=== PATIENT | female | born 1990 | race American Indian/Alaskan Native ===

== ENCOUNTER 2016-06-13 08:25 | Inpatient (IN) | payer MEDICAID ==
[2016-06-13] MEDS ORDERED: PEPCID IV ONE ×2 (09:28→12:00)
[2016-06-13] MEDS ORDERED: REGLAN IV ONE ×2 (09:28→12:00)
[2016-06-13] MEDS ORDERED: BICITRA PO ONE ×2 (09:28→12:00)
[2016-06-13] MEDS ORDERED: ANCEF/STERILE WATER 2 GM/20 ML 20 ML IV NR (10:00)
[2016-06-13] MEDS ORDERED: PITOCin/NS 20 UNIT/1000ML DRIP 1,000 ML IV NR (10:00)
[2016-06-13] MEDS ORDERED: LACTATED RINGERS 1,000 ML IV NR (10:00)
--- NOTE | 2016-06-13 10:22 | History and Physical Report ---
History of Present Illness Date of examination: 06/13/16 Date of admission: 06/13/16 10:11 Chief complaint: SROM clear fluid History of present illness: Pt is a 26yo BF EDC 07/11/16; EGA 36 0/7 weeks presents to L&D complaining of SROM clear fluid at 0700 followed by shannong DENIS's. She received care at [facility] since 10 weeks and course has been complicated by several admissions for PTL - last time being 05/23/16 where she received Magnesium sulfate and Celestone, and previous C Section for abruption. She also has GDM - diet controlled and is Co-managed by [facility]. She is now scheduled for a repeat C Section, and she changed her mind against sterilization. Past History Past Medical History: diabetes (GDM - diet controlled) Past Surgical History: section Family/Genetic History: none Social history: no significant social history, single - Obstetrical History Expected Date of Delivery: 07/11/16 Actual Gestation: 36 Week(s) 0 Day(s) : 3 Medications and Allergies Allergies Allergy/AdvReac Type Severity Reaction Status Date / Time No Known Allergies Allergy Verified 04/26/16 23:30 Home Medications Medication Instructions Recorded Confirmed Last Taken Type Pnv95/Ferrous Fumarate/FA 1 each PO DAILY 07/07/15 05/23/16 05/22/16 08:00 History [ [place]] Multivitamin with Iron 1 each PO DAILY #30 tablet 07/08/15 05/23/16 Unknown Rx [Multivitamins with Iron] NIFEdipine 10 mg PO QID #120 cap 04/16/16 05/23/16 05/22/16 10:00 Rx Ferrous Sulfate [Feosol 325 MG tab] 325 mg PO BID #60 tablet 05/26/16 Unknown Rx Ferrous Sulfate [Feosol 325 MG tab] 325 mg PO BID #60 tablet 06/13/16 Unknown Rx HYDROcodone/APAP 5-325 [[place] 1 each PO Q6HR PRN #30 tablet 06/13/16 Unknown Rx 5/325] Ibuprofen [Motrin] 800 mg PO Q8HR PRN #30 tablet 06/13/16 Unknown Rx Vit W-Ca,Fe,FA(<1 mg) 1 each PO DAILY #30 tablet 06/13/16 Unknown Rx [ Vitamins] Active Meds: Active Medications Cefazolin Sodium (Ancef/Sterile Water 2 Gm/20 Ml) 20 mls @ 80 mls/hr IV PREOP NR PRN Reason: Protocol Stop: 06/13/16 23:00 Lactated Ringer's (Lactated Ringers) 1,000 mls @ 2,250 mls/hr IV PREOP NR Stop: 06/14/16 10:27 Oxytocin/Sodium Chloride (Pitocin/Ns 20 Unit/1000ml Drip) 1,000 mls @ 0 mls/hr IV TITR NR PRN Reason: Wide Open Stop: 06/13/16 23:00 Review of Systems All systems: negative - Vital Signs Vital signs: Vital Signs Pulse BP 93 H 127/64 06/13/16 08:49 06/13/16 08:49 Temp Pulse Resp BP Pulse Ox 101 H 114/66 98 06/13/16 10:19 06/13/16 09:49 06/13/16 10:19 - Physical Exam Breasts: Positive: deferred Cardiovascular: Regular rate Lungs: Positive: Clear to auscultation Abdomen: Positive: normal appearance, soft Genitourinary (Female): Positive: normal external genitalia Uterus: Positive: enlarged Extremities: Positive: normal - Obstetrical FHR: category 1 Uterine Contraction Monitor Mode: External Results Result Diagrams: 06/13/16 09:30 All other labs normal. Assessment and Plan - Patient Problems (1) History of delivery, currently in third trimester Diagnosis Date: 05/23/16 Current Visit: No Status: Chronic (2) Previous delivery affecting Diagnosis Date: 06/13/16 Current Visit: Yes Status: Acute Plan to address problem: A: IUP @ 36 0/7 weeks Previous C Section History of PTL GDM P: Admit to L&D for a Repeat C Section
--- NOTE | 2016-06-13 10:44 | Anesthesia Consultation ---
Anesthesia Consult and Med Hx Date of service: 06/13/16 - Airway Anesthetic Teeth Evaluation: Good ROM Head & Neck: Adequate Mental/Hyoid Distance: Adequate Mallampati Class: Class II Intubation Access Assessment: Possibly Difficult - Pulmonary Exam CTA: Yes - Cardiac Exam Cardiac Exam: RRR - Pre-Operative Health Status ASA Pre-Surgery Classification: ASA2 Proposed Anesthetic Plan: Epidural, Spinal - Pulmonary Hx Asthma: No COPD: No Hx Pneumonia: No - Cardiovascular System Hx Hypertension: No - Central Nervous System Hx Seizures: No Hx Psychiatric Problems: No - Endocrine Hx Renal Disease: No Hx End Stage Renal Disease: No Hx Hypothyroidism: No Hx Hyperthyroidism: No - Hematic Hx Anemia: No Hx Sickle Cell Disease: No - Other Systems Hx Alcohol Use: No - Additional Comments Anesthesia Medical History Comments: IUP @ 36 Weeks. Ruptured. Previous C- section
[2016-06-13 10:47] LABS: Basophils % (Auto) 0.3 % (0.0-1.8); Eosinophils % (Auto) 10.2 % (0.0-4.3); Hematocrit 30.6 % (30.3-42.9); Hemoglobin 10.2 gm/dl (10.1-14.3); Mean Corpuscular HGB Conc 33 % (30-34); Mean Corpuscular Hemoglobin 28 pg (28-32); Mean Corpuscular Volume 84 fl (79-97); Platelet Count 204 K/mm3 (140-440); Red Blood Count 3.63 M/mm3 (3.65-5.03); Red Cell Distribution Width 16.3 % (13.2-15.2)
--- NOTE | 2016-06-13 10:49 | Anesthesia Day of Surgery ---
Anesthesia Day of Surgery - Day of Surgery Patient Examined: Yes Patient H&P Reviewed: Yes Patient is NPO: Yes (Since 9pm)
[2016-06-13] MEDS ORDERED: POLYCILLIN/NS 2 GM/100 ML 100 ML IV ONE (12:34)
[2016-06-13] MEDS ORDERED: MARCAINE 0.5% 30 ML INFILTRATI ONE (16:09)
[2016-06-13] MEDS ORDERED: MORPHINE ONE (16:10)
[2016-06-13] MEDS ORDERED: NACL 0.9% IR ONE (16:20)
[2016-06-13] MEDS ORDERED: WATER FOR IRRIG STERILE IR ONE (16:20)
[2016-06-13] MEDS ORDERED: ePHEDrine SULFATE ONE (16:33)
[2016-06-13] MEDS ORDERED: SUBLIMAZE ONE (17:02)
[2016-06-13] MEDS ORDERED: ZOFRAN ONE (17:05)
--- NOTE | 2016-06-13 17:26 | Operative Report ---
Operative Report Operative Report: Date of procedure: 06/13/2016 Pre-operative diagnosis: 1. Intrauterine at 36-0/7 weeks 2. Previous section 3. Spontaneous rupture of membranes 4. History of labor 5. Gestational diabetes mellitus Post-operative diagnosis: Same Procedure name(s): Repeat low transverse section Surgeon: Kendall Mata MD Spinning Supervisor: None Anesthesia: Spinal anesthesia by Dr. London EBL: 400 mL's Findings: A 2596 g female infant Apgars 9 at 1 minute 9 at 5 minutes. Clear amniotic fluid. Nuchal cord 1. Normal uterus and normal tubes and ovaries bilaterally. Procedure: After the patient was prepped and draped in usual sterile fashion, and after satisfactory level of epidural anesthesia was obtained, the skin knife was used to make a transverse skin incision through the previous skin scar. The incision was excised down to layer of the fascia, which was nicked in the midline and extended laterally using the Bovie cautery. The rectus muscles were dissected off the rectus fascia both superiorly and inferiorly. The rectus bellies in the midline, and the peritoneum was entered under direct visualization. The peritoneal incision was extended superiorly and inferiorly. A bladder flap was created and the bladder blade was then placed. The uterus was scored in a curvilinear linear fashion, entered in the midline revealing clear amniotic fluid. The 's head was delivered onto the surgical field, nuchal cord 1 easily reduced and the oropharynx and nasopharynx were bulb suctioned. The rest of the 's body was delivered, cord was doubly clamped and cut and the infant was handed to the waiting respiratory team. Cord blood was then obtained. The placenta was manually removed from the uterus, and the uterus removed from its normal anatomical position. After gentle uterine lavage, the incision was inspected and found to be without extensions. It was then closed in 2 layers using 0 Vicryl suture in a running interlocking fashion, the second layer imbricating the first. After good hemostasis was achieved, copious amounts or irrigation was performed, and the gutters were suctioned free of blood and blood clots. The Tisseel sealant was sprayed across the uterine incision. The uterus was then returned to its normal anatomical position, and after excellent hemostasis assured, the peritoneum was reapproximated using 3-0 Vicryl suture in a running interlocking fashion, and then the rectus muscles were reapproximated using 3-0 Vicryl suture in a [id number] configuration. The fascia was then reapproximated using 0 Vicryl suture in running interlocking fashion. The subcutaneous layer was made hemostatic using Bovie cautery, the Tisseel sealant was sprayed across the fascial incision and the skin edges reapproximated using 4-0 Vicryl suture in a subcuticular fashion. Patient tolerated the procedure well was transported to recovery in stable condition.
[2016-06-13] MEDS ORDERED: LACTATED RINGERS 1,000 ML ONE (17:36)
[2016-06-13] MEDS ORDERED: TORADOL IV PRN (17:36)
[2016-06-13] MEDS ORDERED: MILK OF MAGNESIA PO PRN (17:36)
[2016-06-13] MEDS ORDERED: NARCAN 0.4 MG/1 ML IV PRN ×2 (17:36→18:46)
[2016-06-13] MEDS ORDERED: ZOFRAN IV PRN (17:36)
[2016-06-13] MEDS ORDERED: LANSINOH TP PRN (17:36)
[2016-06-13] MEDS ORDERED: TUCKS PAD TP PRN (17:36)
[2016-06-13] MEDS ORDERED: TYLENOL PO PRN (17:36)
[2016-06-13] MEDS ORDERED: MYLICON PO PRN (17:36)
[2016-06-13] MEDS ORDERED: ANUCORT-HC PR PRN (17:36)
[2016-06-13] MEDS ORDERED: NEO SYNEPHRINE ONE (17:37)
[2016-06-13] MEDS ORDERED: NACL 0.9% 100 ML ONE (17:37)
[2016-06-13] MEDS ORDERED: D5LR 1,000 ML IV SCH (18:00)
[2016-06-13] MEDS ORDERED: SODIUM CHLORIDE FLUSH SYRINGE 10 ML IV NR (18:00)
[2016-06-13] MEDS ORDERED: PITOCin/NS 20 UNIT/1000ML DRIP 1,000 ML IV SCH (18:00)
[2016-06-13] MEDS ORDERED: ANCEF/NS 1 GM/50 ML 50 ML IV SCH (18:00)
[2016-06-13] MEDS ORDERED: PHENERGAN PO PRN (18:23)
[2016-06-13] MEDS ORDERED: PHENERGAN PR PRN (18:23)
[2016-06-13] MEDS ORDERED: DILAUDID IV PRN (18:23)
--- NOTE | 2016-06-13 18:23 | Post Anesthesia Evaluation ---
- Post Anesthesia Evaluation Patient Participated: Yes Airway Patent: Yes Stable Respiratory Function: Yes Temp > 96.8F: Yes Pain Manageable: Yes Adequeate Hydration: Yes Anesthesia Complications: No Block Receding Appropriately: Yes
[2016-06-14] MEDS ORDERED: ANCEF/NS 1 GM/50 ML 50 ML IV SCH (04:00)
[2016-06-14 06:44] LABS: Hemoglobin 9.5 gm/dl (10.1-14.3)
--- NOTE | 2016-06-14 07:19 | Progress Note ---
Assessment and Plan - Patient Problems (1) History of delivery, currently in third trimester Diagnosis Date: 05/23/16 Current Visit: No Status: Resolved (2) Previous delivery affecting Diagnosis Date: 06/13/16 Current Visit: Yes Status: Resolved (3) Status post repeat low transverse section Diagnosis Date: 06/14/16 Current Visit: Yes Status: Resolved Plan to address problem: A: S/P Repeat C Section - POD #1 Doing well GDM - stable P: Continue RPOC Check blood sugars Subjective - Subjective Date of service: 06/14/16 Principal diagnosis: POD #1 - s/p Repeat C Section Interval history: Pt is feeling well without complaints. Tolerating a liquid diet without nausea or vomiting. Not ambulating yet - espinosa still in place. Patient reports: appetite normal, voiding normally, pain well controlled, flatus : doing well, nursing well Objective - Vital Signs Latest vital signs: Vital Signs Temp Pulse Pulse Resp BP BP Pulse Ox 06/14/16 04:00 98.7 F 103 H 18 112/61 06/14/16 00:00 98.4 F 89 16 119/68 06/13/16 20:00 97.7 F 97 H 18 142/75 06/13/16 18:50 96.9 F L 91 H 16 119/66 06/13/16 17:45 97.1 F L 06/13/16 12:09 94 H 98 06/13/16 12:04 95 H 97 06/13/16 11:59 97 H 96 06/13/16 11:54 94 H 98 06/13/16 11:49 100 H 98 06/13/16 11:44 98 H 97 06/13/16 11:39 94 H 98 06/13/16 11:34 87 97 06/13/16 11:29 84 98 06/13/16 11:24 97 H 98 06/13/16 11:19 91 H 97 06/13/16 11:14 89 98 06/13/16 10:59 98 H 98 06/13/16 10:54 96 H 98 06/13/16 10:49 96 H 96 06/13/16 10:44 89 98 06/13/16 10:39 86 99 06/13/16 10:34 94 H 97 06/13/16 10:29 100 H 98 06/13/16 10:24 97 H 97 06/13/16 10:19 101 H 98 06/13/16 10:14 94 H 96 06/13/16 10:09 94 H 98 06/13/16 10:04 89 97 06/13/16 09:59 99 H 98 06/13/16 09:54 109 H 98 06/13/16 09:49 96 H 114/66 98 06/13/16 08:49 93 H 127/64 Intake and Output 06/13/16 06/14/16 06/14/16 22:59 06:59 14:59 Intake Total 665 875 Output Total 1900 700 Balance -1235 175 Intake: IV 545 875 Ancef/Ns 1 gm/50 ml 50 ml 50 @ 100 mls/hr IV Q8H SARATH Rx#:[id number] 1,000 ml @ 125 mls/ 495 875 hr IV DIRECT SARATH Rx#: [id number] Intake, Free Water 120 Output: Urine 1900 700 Uretheral (Espinosa) 800 Indwelling Catheter 900 700 Other: Total, Output Amount 900 700 Estimated Blood Loss 900 - Exam Breasts: Present: deferred Cardiovascular: Present: Regular rate Lungs: Present: Clear to auscultation Abdomen: Present: normal appearance, soft Uterus: Present: normal, firm, fundal height below umbilicus Extremities: Present: normal Incision: Present: normal, dry, intact, dressed - Labs Labs: Abnormal lab results 06/13/16 06/14/16 Range/Units 09:30 05:36 RBC 3.63 L (3.65-5.03) M/mm3 Hgb 9.5 L (10.1-14.3) gm/dl Hct 29.0 L (30.3-42.9) % RDW 16.3 H (13.2-15.2) % [place] % (Auto) 12.0 H (0.0-7.3) % Eos % (Auto) 10.2 H (0.0-4.3) % [place] # 1.0 H (0.0-0.8) K/mm3 Eos # 0.8 H (0.0-0.4) K/mm3 Laboratory Tests 06/13/16 06/13/16 06/14/16 09:30 09:30 05:36 WBC 8.0 RBC 3.63 L Hgb 10.2 9.5 L Hct 30.6 29.0 L MCV 84 MCH 28 MCHC 33 RDW 16.3 H Plt Count 204 Lymph % (Auto) 24.4 [place] % (Auto) 12.0 H Eos % (Auto) 10.2 H Baso % (Auto) 0.3 Lymph # 2.0 [place] # 1.0 H Eos # 0.8 H Baso # 0.0 Seg Neutrophils % 53.1 Seg Neutrophils # 4.3 Blood Type A NEGATIVE Antibody Screen Negative
[2016-06-14] MEDS: FEOSOL PO SCH (12:01)
[2016-06-14] MEDS: PERCOCET 5/325 PO PRN (12:01)
[2016-06-14] MEDS: PRENATAL VITAMIN PO SCH (12:01)
[2016-06-14] MEDS: SENOKOT PO PRN (17:02)
[2016-06-14] MEDS: MOTRIN PO PRN (17:03)
[2016-06-14] MEDS: NORCO 5/325 PO PRN (17:03)
[2016-06-14] MEDS ORDERED: BOOSTRIX IM ONE (17:38)
[2016-06-14] MEDS ORDERED: M-M-R II VACCINE SUB-Q ONE (17:38)
[2016-06-15] MEDS: PERCOCET 5/325 PO PRN ×3 (01:00→23:56)
[2016-06-15] MEDS: MOTRIN PO PRN ×4 (01:00→23:55)
[2016-06-15] MEDS: NORCO 5/325 PO PRN ×2 (06:10→18:00)
--- NOTE | 2016-06-15 11:04 | Progress Note ---
Assessment and Plan - Patient Problems (1) History of delivery, currently in third trimester Diagnosis Date: 05/23/16 Current Visit: No Status: Resolved (2) Previous delivery affecting Diagnosis Date: 06/13/16 Current Visit: Yes Status: Resolved (3) Status post repeat low transverse section Diagnosis Date: 06/14/16 Current Visit: Yes Status: Resolved Plan to address problem: A: S/P Repeat C Section - POD #2 Doing well GDM - stable P: Possible discharge to home tomorrow. Subjective - Subjective Date of service: 06/15/16 Principal diagnosis: POD #2 - s/p Repeat C Section Interval history: Pt is feeling well without complaints. Tolerating a reg diet without nausea or vomiting, ambulating and voiding without difficulty. Patient reports: appetite normal, voiding normally, pain well controlled, flatus , ambulating normally : doing well, in NICU Objective - Vital Signs Latest vital signs: Vital Signs Temp Pulse Resp BP BP 06/15/16 07:56 97.9 F 90 20 104/48 06/15/16 06:10 18 06/15/16 01:00 18 06/15/16 00:40 98.0 F 105 H 20 129/66 06/14/16 16:20 98.6 F 105 H 20 118/61 Intake and Output 06/14/16 06/15/16 06/15/16 22:59 06:59 14:59 Intake Total 360 360 120 Output Total 300 Balance 60 360 120 Intake: Oral 360 120 Intake, Free Water 360 Output: Urine 300 Void 300 Other: Total, Intake Amount 360 120 Total, Output Amount 300 Voiding Method Toilet # Voids Void 1 - Exam Breasts: Present: deferred Cardiovascular: Present: Regular rate Lungs: Present: Clear to auscultation Abdomen: Present: normal appearance, soft Uterus: Present: normal, firm, fundal height below umbilicus Extremities: Present: normal Incision: Present: normal, dry, intact
[2016-06-15] MEDS: PRENATAL VITAMIN PO SCH (11:21)
[2016-06-15] MEDS: FEOSOL PO SCH (11:22)
--- NOTE | 2016-06-15 16:42 | Discharge Summary ---
Providers - Providers Date of Admission: 06/13/16 10:11 Date of discharge: 06/16/16 Attending physician: ABIDA SANDS MD Primary care physician: ABIDA SANDS MD Hospitalization Reason for admission: IUP - , section, rupture of membranes Delivery: Procedure: section, repeat low transverse Incision: normal, dry, intact Other procedures: none complications: none Discharge diagnosis: delivery [place] baby: female Hospital course: Pt is a 26yo BF EDC 07/11/16; EGA 36 0/7 weeks who presented to L&D complaining of SROM clear fluid followed by irreg UC's. She received care at [facility] since 10 weeks and course has been complicated by several admissions for PTL where she received Magnesium sulfate and Celestone, and previous C Section for abruption. She underwent an uncomplicated repeat C Section, and post operative course was uneventful. By POD #2 she was tolerating a reg diet without nausea or vomiting, ambulating and voiding without difficulty, and therefore discharged to home on POD #3 in stable condition. Condition at discharge: Good Disposition: DISCHARGED TO HOME OR SELFCARE - Discharge Diagnoses (1) History of delivery, currently in third trimester Status: Resolved (2) Previous delivery affecting Status: Resolved (3) Status post repeat low transverse section Status: Resolved Plan - Discharge Medications Prescriptions: Ferrous Sulfate [Feosol 325 MG tab] 325 mg PO BID #60 tablet HYDROcodone/APAP 5-325 [[place] 5/325] 1 each PO Q6HR PRN #30 tablet PRN Reason: Pain Ibuprofen [Motrin] 800 mg PO Q8HR PRN #30 tablet PRN Reason: Moder Pain Unrelieved By Brothers Vit W-Ca,Fe,FA(<1 mg) [ Vitamins] 1 each PO DAILY #30 tablet - Provider Discharge Summary Activity: routine, no sex for 6 weeks, no heavy lifting 4 weeks, no strenuous exercise Diet: routine Instructions: routine Additional instructions: [] Smoking cessation referral if applicable(refer to patient education folder for contact #) [] Refer to [facility] Booklet Call your doctor immediately for: * Fever > 100.5 * Heavy vaginal bleeding ( >1 pad per hour) * Severe persistent headache * Shortness of breath * Reddened, hot, painful area to leg or breast * Drainage or odor from incision. * Keep incision clean and dry at all times and follow doctor's instructions regarding bathing/showering - Follow up plan Follow up: ABIDA FRYE MD [Primary Care Provider] - 14 Days Forms: Work/School Excuse Out Patient, Discharge Signature Page
[2016-06-16] MEDS: FEOSOL PO SCH (08:05)
[2016-06-16] MEDS: PRENATAL VITAMIN PO SCH (08:05)
[2016-06-16] MEDS: MOTRIN PO PRN (08:05)
[2016-06-16] MEDS: PERCOCET 5/325 PO PRN (08:06)
[2016-06-16] MEDS: SENOKOT PO PRN (08:10)
[2016-06-16 09:17] VITALS: BP 112/70
[2016-06-16] MEDS ORDERED: DULCOLAX PR PRN (11:50)
== END 2016-06-16 15:15 | disposition home or self-care (01) | DRG 765 ==
LOC: TRG 08:25 → APU 10:11 → OB 19:19
PROVIDERS: ADMIT Obstetrics & Gynecology; ATTEND Obstetrics & Gynecology
PROC: 10D00Z1 Extraction of Products of Conception, Low, Open Approach (ICD-10-PCS; principal; 2016-06-13)
PROC: 3E0334Z Introduction of Serum, Toxoid and Vaccine into Peripheral Vein, Percutaneous Approach (ICD-10-PCS; 2016-06-14)
DX: O42.013 Preterm premature rupture of membranes, onset of labor within 24 hours of rupture, third trimester (principal); O60.14X0 Preterm labor third trimester with preterm delivery third trimester, not applicable or unspecified; O34.219 Maternal care for unspecified type scar from previous cesarean delivery; O24.420 Gestational diabetes mellitus in childbirth, diet controlled; Z3A.36 36 weeks gestation of pregnancy; Z37.0 Single live birth; O26.893 Other specified pregnancy related conditions, third trimester; Z67.11 Type A blood, Rh negative; O69.81X0 Labor and delivery complicated by cord around neck, without compression, not applicable or unspecified
CPT/HCPCS: 36415; 82962; 85014; 85018; 85025; 85461; 86850; 86900; 86901; 88307; 99211; A6250; G0463; J0290; J0690; J2270; J2370; J2405; J2590; J2765; J2790; J3010; J7120; J7121; Q0169

== ENCOUNTER 2016-11-16 15:11 | Emergency (ER) | payer SELFPAY ==
[2016-11-16 15:21] VITALS: BP 148/100
[2016-11-16 15:57] LABS: Bacteria,Urine 1+ /HPF (Negative); Bilirubin,Urine NEG (Negative); Blood,Urine NEG (Negative); Ketones,Urine NEG (Negative); Leukocyte Esterase,Urine SM (Negative); Mucus,Urine 3+ /HPF; Nitrite,Urine NEG (Negative); Urobilinogen,Urine < 2.0 mg/dL (<2.0)
[2016-11-16 16:43] LABS: Basophils % (Auto) 0.8 % (0.0-1.8); Eosinophils % (Auto) 1.7 % (0.0-4.3); Hematocrit 36.1 % (30.3-42.9); Hemoglobin 11.3 gm/dl (10.1-14.3); Mean Corpuscular HGB Conc 31 % (30-34); Mean Corpuscular Volume 80 fl (79-97); Platelet Count 261 K/mm3 (140-440); Red Blood Count 4.53 M/mm3 (3.65-5.03); Red Cell Distribution Width 16.7 % (13.2-15.2)
[2016-11-16 17:01] LABS: Mean Corpuscular Hemoglobin 25 pg (28-32)
[2016-11-16 17:32] LABS: Alanine Aminotransferase 117 units/L (7-56); Albumin 4.3 g/dL (3.9-5); Albumin/Globulin Ratio 1.3 %; Alkaline Phosphatase 93 units/L (35-129); Anion Gap 17 mmol/L; Blood Urea Nitrogen 12 mg/dL (7-17); Calcium 9.1 mg/dL (8.4-10.2); Carbon Dioxide 24 mmol/L (22-30); Chloride 102.7 mmol/L (98-107); Glucose 83 mg/dL (65-100); Lipase 21 units/L (13-60); Potassium 4.5 mmol/L (3.6-5.0); Sodium 139 mmol/L (137-145); Total Protein 7.5 g/dL (6.3-8.2)
--- NOTE | 2016-11-17 11:18 | ED Elopement Review ---
ED Pt Elopement review - Results review Lab results: Laboratory Tests 11/16/16 11/16/16 11/16/16 15:29 15:56 15:56 WBC 5.0 RBC 4.53 Hgb 11.3 Hct 36.1 MCV 80 MCH 25 L MCHC 31 RDW 16.7 H Plt Count 261 Lymph % (Auto) 36.9 H [place] % (Auto) 12.1 H Eos % (Auto) 1.7 Baso % (Auto) 0.8 Lymph # 1.9 [place] # 0.6 Eos # 0.1 Baso # 0.0 Seg Neutrophils % 48.5 Seg Neutrophils # 2.4 Sodium 139 Potassium 4.5 Chloride 102.7 Carbon Dioxide 24 Anion Gap 17 BUN 12 Creatinine 0.6 L Estimated GFR > 60 BUN/Creatinine Ratio 20.00 Glucose 83 Calcium 9.1 Total Bilirubin 0.50 AST 139 H ALT 117 H Alkaline Phosphatase 93 Total Protein 7.5 Albumin 4.3 Albumin/Globulin Ratio 1.3 Lipase 21 Urine Color Yellow Urine Turbidity Clear Urine pH 5.0 Ur Specific [place] 1.031 H Urine Protein 30 mg/dl Urine Glucose (UA) Neg Urine Ketones Neg Urine Blood Neg Urine Nitrite Neg Urine Bilirubin Neg Urine Urobilinogen < 2.0 Ur Leukocyte Esterase Sm Urine WBC (Auto) 5.0 Urine RBC (Auto) 5.0 U Epithel Cells (Auto) 3.0 Urine Bacteria (Auto) 1+ Urine Mucus 3+ Urine HCG, Qual Negative - Call Back decision Pt Call Back Decision: Pt to F/U with PMD
== END 2016-11-16 18:30 | disposition left against medical advice (07) ==
LOC: ED 15:11
DX: R10.9 Unspecified abdominal pain (principal); Z53.21 Procedure and treatment not carried out due to patient leaving prior to being seen by health care provider
CPT/HCPCS: 36415; 80053; 81001; 81025; 83690; 85025

== ENCOUNTER 2018-02-17 07:54 | Emergency (ER) | payer SELFPAY ==
[2018-02-17 08:00] VITALS: BP 132/64
[2018-02-17] MEDS ORDERED: NACL 0.9% 1000 ML 1,000 ML IV ONE (08:00)
[2018-02-17 08:36] LABS: Basophils % (Auto) 0.7 % (0.0-1.8); Eosinophils # (Auto) 0.1 K/mm3 (0.0-0.4); Eosinophils % (Auto) 1.9 % (0.0-4.3); Hemoglobin 12.4 gm/dl (10.1-14.3); Lymphocytes # (Auto) 2.4 K/mm3 (1.2-5.4); Lymphocytes % (Auto) 47.4 % (13.4-35.0); Mean Corpuscular HGB Conc 33 % (30-34); Mean Corpuscular Hemoglobin 27 pg (28-32); Mean Corpuscular Volume 83 fl (79-97); Monocytes # (Auto) 0.6 K/mm3 (0.0-0.8); Monocytes % (Auto) 11.1 % (0.0-7.3); Platelet Count 247 K/mm3 (140-440); Red Blood Count 4.56 M/mm3 (3.65-5.03); Red Cell Distribution Width 15.2 % (13.2-15.2)
[2018-02-17 08:39] LABS: Alanine Aminotransferase 15 units/L (7-56); Albumin 4.1 g/dL (3.9-5); BUN/Creatinine Ratio 21; Blood Urea Nitrogen 15 mg/dL (7-17); Calcium 8.9 mg/dL (8.4-10.2); Hemolysis Index 5; Lipase 22 units/L (13-60)
== END 2018-02-17 10:04 | disposition left against medical advice (07) ==
LOC: ED 07:54
DX: R10.11 Right upper quadrant pain (principal); Z53.21 Procedure and treatment not carried out due to patient leaving prior to being seen by health care provider
CPT/HCPCS: 36415; 80053; 83690; 84703; 85025

== ENCOUNTER 2020-04-18 06:56 | Day surgery (SDC) | payer BC ==
[2020-04-13 08:38] LABS: Hematocrit 33.6 % (30.3-42.9); Hemoglobin 10.8 gm/dl (10.1-14.3); Mean Corpuscular HGB Conc 32 % (30-34); Mean Corpuscular Volume 80 fl (79-97); Platelet Count 256 K/mm3 (140-440); Red Blood Count 4.18 M/mm3 (3.65-5.03); Red Cell Distribution Width 16.6 % (13.2-15.2)
[2020-04-18] MEDS ORDERED: HYDROmorphone 1 MG/1 ML INJ IV PRN ×2 (07:31)
[2020-04-18] MEDS ORDERED: ONDANSETRON 4 MG/2 ML INJ IV PRN (07:31)
--- NOTE | 2020-04-18 07:33 | Anesthesia Day of Surgery ---
Anesthesia Day of Surgery - Day of Surgery Patient Examined: Yes Patient H&P Reviewed: Yes Patient is NPO: Yes
--- NOTE | 2020-04-18 07:34 | Anesthesia Consultation ---
Anesthesia Consult and Med Hx Date of service: 04/18/20 - Airway Anesthetic Teeth Evaluation: Good ROM Head & Neck: Adequate Mental/Hyoid Distance: Adequate Mallampati Class: Class II Intubation Access Assessment: Good - Pre-Operative Health Status ASA Pre-Surgery Classification: ASA2 Proposed Anesthetic Plan: General - Pulmonary Hx Asthma: No COPD: No Hx Pneumonia: No - Cardiovascular System Hx Hypertension: No - Central Nervous System Hx Seizures: No Hx Psychiatric Problems: No - Endocrine Hx Renal Disease: No Hx End Stage Renal Disease: No Hx Hypothyroidism: No Hx Hyperthyroidism: No - Hematic Hx Anemia: No Hx Sickle Cell Disease: No - Other Systems Hx Alcohol Use: No Hx Cancer: No Hx Obesity: Yes
[2020-04-18] MEDS ORDERED: MIDAZOLAM 2 MG/2 ML INJ IV NR (08:00)
[2020-04-18] MEDS ORDERED: LACTATED RINGERS 1,000 ML IV SCH (08:00)
--- NOTE | 2020-04-18 09:05 | Short Stay Summary ---
Short Stay Documentation Date of service: 04/18/20 Narrative H&P: 30-year-old -0-1-2 with a history of undesired fertility. The patient has elected to undergo permanent sterilization. She is aware of other contraceptive options. - History Principal diagnosis: Undesired fertility Past Medical History: No medical history Past Surgical History: cholecystectomy, Social history: single - Allergies and Medications Current Medications: Allergies No Known Allergies Allergy (Verified 04/12/20 14:54) Home Medications Medication Instructions Recorded Confirmed Last Taken Type No Known Home Medications [No 04/12/20 04/12/20 Unknown History Reported Home Medications] Active Medications Hydromorphone HCl (Dilaudid) 0.25 mg IV Q10MIN PRN PRN Reason: Pain, Moderate (4-6) Hydromorphone HCl (Dilaudid) 0.5 mg IV Q10MIN PRN PRN Reason: Pain , Severe (7-10) Lactated Ringer's (Lactated Ringers) 1,000 mls @ 125 mls/hr IV DIRECT SARATH Last Admin: 04/18/20 08:15 Dose: 125 mls/hr Documented by: Midazolam HCl (Versed) 2 mg IV PREOP NR Stop: 04/18/20 23:59 Last Admin: 04/18/20 08:30 Dose: 2 mg Documented by: Ondansetron HCl (Zofran) 4 mg IV ONCE PRN PRN Reason: Nausea And Vomiting - Physical exam General appearance: no acute distress Integumentary: no rash HEENT: Atraumatic Lungs: Clear to auscultation Breasts: deferred Heart: Regular rate Gastrointestinal: normal Female Genitourinary: deferred Rectal Exam: deferred - Brief post op/procedure progress note Date of procedure: 04/18/20 Pre-op diagnosis: Undesired fertility; menorrhagia Post-op diagnosis: same Procedure: Laparoscopy Bilateral salpingectomy Placement of Mirena IUD Anesthesia: BRENDA Surgeon: NIKITA BEARD Estimated blood loss: minimal Pathology: list (Bilateral fallopian tubes) Specimen disposition: to lab Condition: stable - Hospital course Hospital course: The patient was admitted the day of surgery and underwent a laparoscopy, bilate ral salpingectomy, and placement of a Mirena IUD for menorrhagia. Please see operative note for details of surgery. Her postoperative course was uneventful. - Disposition Condition at discharge: Good Disposition: DC-01 TO HOME OR SELFCARE - Discharge Diagnoses (1) Unwanted fertility Status: Acute (2) Menorrhagia Status: Acute Short Stay Discharge Plan Activity: other (Pelvic rest for 1 week) Diet: regular Additional Instructions: Follow-up is not required Follow-up as needed Prescriptions: Ibuprofen [Motrin] 800 mg PO Q8HR PRN #30 tablet PRN Reason: Pain , Severe (7-10) HYDROcodone/APAP 5-325 [[place] 5/325] 1 each PO Q6HR PRN #15 tablet PRN Reason: Pain
[2020-04-18] MEDS ORDERED: LIDOCAINE MPF (2%) 20 MG/1 ML VIAL 5 ML ONE (09:46)
[2020-04-18] MEDS ORDERED: HYDROmorphone 1 MG/1 ML INJ ONE (09:46)
[2020-04-18] MEDS ORDERED: ROCURONIUM 50 MG/5 ML INJ IV ONE (09:47)
[2020-04-18] MEDS ORDERED: propofoL 200 MG/20 ML VIAL IV ONE (09:47)
[2020-04-18] MEDS ORDERED: BUPIVACAINE/PF (0.5%) 5 MG/1 ML 10 ML VIAL INFILTRATI ONE ×3 (09:54→10:36)
[2020-04-18] MEDS ORDERED: SODIUM CHLORIDE 0.9% IRR 1,500 ML BOTTLE IR ONE (10:37)
[2020-04-18] MEDS ORDERED: ONDANSETRON 4 MG/2 ML INJ ONE (10:47)
[2020-04-18] MEDS ORDERED: NEOSTIGMINE 10MG/10 ML INJ MDV ONE (10:47)
[2020-04-18] MEDS ORDERED: KETOROLAC 30 MG/1 ML INJ ONE (10:47)
[2020-04-18] MEDS ORDERED: GLYCOPYRROLATE 0.4 MG/2 ML INJ ONE (10:47)
--- NOTE | 2020-04-18 11:00 | Operative Report ---
Operative Report Operative Report: Date of surgery: April 18, 2020 Preoperative diagnosis: Unwanted fertility; menorrhagia Postoperative diagnosis: Same as above Procedure: Laparoscopy; Bilateral salpingectomy; insertion of Mirena intrauterine device Surgeon: Karen Mckeon M.D. Anesthesia: General endotracheal anesthesia Estimated blood loss: Minimal Pathology: Bilateral fallopian tubes Findings: Normal uterus tubes and ovaries; pelvic adhesions Indication: 30-year-old -0-1-2 with undesired fertility. The patient also has a history of significant menorrhagia. She is elected to undergo permanent sterilization. Procedure: The patient was taken to the operating room and given general endotracheal anesthesia without complication. The patient is prepped and draped in a normal sterile fashion. A bivalve speculum was placed in the patient's vagina and a single-tooth tenaculum was placed on the anterior lip of the cervix .A uterine acorn manipulator was placed, and the bivalve speculum was then removed. Attention was then turned to the patient's abdomen where a 5 mm infraumbilical skin incision was then made. A Veress needle was placed and peritoneal entry was verified water-filled syringe. Insufflation of the peritoneal cavity was performed with CO2 gas. A 5 mm trocar was placed and the laparoscope was then inserted. The patient was then placed in Trendelenburg. A 7 mm suprapubic skin incision was then made. Under direct visualization a 7 mm trocar was then placed. An additional 5 mm left lateral trocar was also placed. 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 The fallopian tube was then followed out to the fimbriated end. The LigaSure device was used in order to coagulate and transect the mesosalpinx. The fallopian tube was excised from the adnexa. The fallopian tube was removed through the 7 mm trocar. This was performed on the contralateral side as well. The trocars were then removed. The pneumoperitoneum was then released. The 5 mm trocar laparoscope was then removed. The skin incisions were then closed with 4-0 Monocryl. The incisions were injected with quarter percent Marcaine. Dressings were applied to the incision. The uterine manipulator was then removed. The Mirena IUD was inserted without difficulty. The vaginal instruments were then removed atraumatically. Then successfully extubated and taken to the recovery room. All sponge laps and needle counts were correct x2.
[2020-04-18 12:08] VITALS: BP 126/77
--- NOTE | 2020-04-18 12:21 | Post Anesthesia Evaluation ---
- Post Anesthesia Evaluation Patient Participated: Yes Airway Patent: Yes Stable Respiratory Function: Yes Nausea/Vomiting: No Temp > 96.8F: Yes Pain Manageable: Yes Adequeate Hydration: Yes Anesthesia Complications: No Block Receding Appropriately: Not Applicable Patient on Ventilator: No
== END 2020-04-18 06:57 | disposition home or self-care (01) ==
LOC: OR 06:56
PROVIDERS: ATTEND Obstetrics & Gynecology
DX: Z30.2 Encounter for sterilization (principal); Z20.828 Contact with and (suspected) exposure to other viral communicable diseases; N92.0 Excessive and frequent menstruation with regular cycle; N83.8 Other noninflammatory disorders of ovary, fallopian tube and broad ligament; G43.909 Migraine, unspecified, not intractable, without status migrainosus; E66.9 Obesity, unspecified; Z79.899 Other long term (current) drug therapy; Z98.891 History of uterine scar from previous surgery; Z98.890 Other specified postprocedural states; Z83.3 Family history of diabetes mellitus; Z80.8 Family history of malignant neoplasm of other organs or systems
CPT/HCPCS: 36415; 58300; 58670; 84703; 85027; 88302; J1170; J1885; J2250; J2405; J2704; J2710; J7120; U0003

== ENCOUNTER 2020-08-20 20:10 | Emergency (ER) | payer OTHER ==
[2020-08-20 20:20] VITALS: BP 145/64
--- NOTE | 2020-08-20 20:21 | Event Note ---
ED Screening Note Date of service: 08/20/20 Time: 20:20 ED Screening Note: c/o GRIDER and dizziness since thursday. No significant pmhx This initial assessment/diagnostic orders/clinical plan/treatment(s) is/are subject to change based on patients health status, clinical progression and re-assessment by fellow clinical providers in the ED. Further treatment and workup at subsequent clinical providers discretion. Patient/guardian urged not to elope from the ED as their condition may be serious if not clinically assessed and managed. Initial orders include: CBC CMP HCG
[2020-08-20 20:46] LABS: Basophils % (Auto) 0.6 % (0.0-1.8); Eosinophils # (Auto) 0.1 K/mm3 (0.0-0.4); Eosinophils % (Auto) 1.6 % (0.0-4.3); Hematocrit 36.3 % (30.3-42.9); Hemoglobin 11.8 gm/dl (10.1-14.3); Lymphocytes # (Auto) 2.3 K/mm3 (1.2-5.4); Lymphocytes % (Auto) 47.6 % (13.4-35.0); Mean Corpuscular HGB Conc 32 % (30-34); Mean Corpuscular Volume 83 fl (79-97); Monocytes # (Auto) 0.7 K/mm3 (0.0-0.8); Monocytes % (Auto) 14.1 % (0.0-7.3); Platelet Count 256 K/mm3 (140-440); Red Blood Count 4.38 M/mm3 (3.65-5.03); Red Cell Distribution Width 15.4 % (13.2-15.2)
[2020-08-20 21:06] LABS: Alanine Aminotransferase 18 units/L (7-56); BUN/Creatinine Ratio 16; Blood Urea Nitrogen 13 mg/dL (7-17); Calcium 8.6 mg/dL (8.4-10.2); Hemolysis Index 4
[2020-08-20] MEDS ORDERED: BUTALB/ACETAMINOPHEN/CAFFEINE TAB PO ONE (21:40)
--- NOTE | 2020-08-20 22:12 | Emergency Department Report ---
ED Headache HPI - General Chief Complaint: Headache Stated Complaint: HEADACHE/DIZZINESS Time Seen by Provider: 08/20/20 20:50 - History of Present Illness Initial Comments: This is a 30-year-old female who presents to the ED complaining temporal orbital headache x1 week. Patient states that headache is localized to her tempora l/orbital region. Patient describes pain as throbbing aching that is mostly constant for most of the day. Patient denies any head trauma or loss of consciousness. Patient states that she used to have headaches in the past. Patient does note that she just got her glasses prescription few about a month ago. Patient denies fever/chills/nausea vomiting Timing/Duration: 1 week, constant Quality: moderate, achy, throbbing Head Injury Location: temporal, occipital Recent Head Trauma: no recent headache/trauma, chronic headaches Modifying Factors: improves with: medication Associated Symptoms: denies: confusion, nausea/vomiting Allergies/Adverse Reactions: Allergies No Known Allergies Allergy (Verified 04/12/20 14:54) Home Medications: Ambulatory Orders HYDROcodone/APAP 5-325 [[place] 5/325] 1 each PO Q6HR PRN #15 tablet 04/18/20 Butalb/Acetamin/Caff 50-325-40 [Fioricet 50-325-40] 1 tab PO Q8H #30 tablet 08/20/20 Ibuprofen [Motrin 800 MG tab] 800 mg PO Q8HR PRN #30 tablet 08/20/20 ED Review of Systems ROS: Stated complaint: HEADACHE/DIZZINESS Other details as noted in HPI Comment: All other systems reviewed and negative ED Past Medical Hx - Past Medical History Hx Hypertension: No Hx Congestive Heart Failure: No Hx Diabetes: No Hx Deep Vein Thrombosis: No Hx Renal Disease: No Hx Sickle Cell Disease: No Hx Headaches / Migraines: Yes (Migraines) Hx Seizures: No Hx Asthma: No Hx COPD: No Hx HIV: No - Surgical History Hx Cholecystectomy: Yes Additional Surgical History: x 2 - Social History Smoking Status: Never Smoker Substance Use Type: None - Medications Home Medications: Home Medications Medication Instructions Recorded Confirmed Last Taken Type HYDROcodone/APAP 5-325 [[place] 1 each PO Q6HR PRN #15 tablet 04/18/20 Unknown Rx 5/325] Butalb/Acetamin/Caff 50-325-40 1 tab PO Q8H #30 tablet 08/20/20 Unknown Rx [Fioricet 50-325-40] Ibuprofen [Motrin 800 MG tab] 800 mg PO Q8HR PRN #30 tablet 08/20/20 Unknown Rx ED Physical Exam - General Limitations: No Limitations General appearance: alert, in no apparent distress - Head Head exam: Present: atraumatic, normocephalic, normal inspection - Eye Eye exam: Present: normal appearance, PERRL. Absent: periorbital swelling, periorbital tenderness Pupils: Present: normal accommodation - ENT ENT exam: Present: normal exam, mucous membranes moist - Neck Neck exam: Present: normal inspection - Respiratory Respiratory exam: Present: normal lung sounds bilaterally. Absent: respiratory distress - Cardiovascular Cardiovascular Exam: Present: regular rate, normal rhythm. Absent: systolic murmur, diastolic murmur, rubs, gallop - GI/Abdominal GI/Abdominal exam: Present: soft, normal bowel sounds. Absent: distended, tenderness - Extremities Exam Extremities exam: Present: normal inspection - Back Exam Back exam: Present: normal inspection - Neurological Exam Neurological exam: Present: alert, oriented X3, CN II-XII intact, normal gait - Psychiatric Psychiatric exam: Present: normal affect, normal mood - Skin Skin exam: Present: warm, dry, intact, normal color. Absent: rash ED Course Vital Signs 08/20/20 08/20/20 20:15 20:18 Temperature 98.1 F Pulse Rate 94 H Respiratory 18 Rate Blood Pressure 145/64 [Right] O2 Sat by Pulse 98 Oximetry ED Medical Decision Making - Lab Data Result diagrams: 08/20/20 20:26 08/20/20 20:26 Laboratory Last Values WBC 4.7 K/mm3 (4.5-11.0) 08/20/20 20: RBC 4.38 M/mm3 (3.65-5.03) 08/20/20 20: Hgb 11.8 gm/dl (10.1-14.3) 08/20/20 20: Hct 36.3 % (30.3-42.9) 08/20/20 20:26 MCV 83 fl (79-97) 08/20/20 20: MCH 27 pg (28-32) L 08/20/20 20: MCHC 32 % (30-34) 08/20/20 20: RDW 15.4 % (13.2-15.2) H 08/20/20 20: Plt Count 256 K/mm3 (140-440) 08/20/20 20: Lymph % (Auto) 47.6 % (13.4-35.0) H 08/20/20 20: [place] % (Auto) 14.1 % (0.0-7.3) H 08/20/20 20: Eos % (Auto) 1.6 % (0.0-4.3) 08/20/20 20: Baso % (Auto) 0.6 % (0.0-1.8) 08/20/20 20: Lymph # (Auto) 2.3 K/mm3 (1.2-5.4) 08/20/20 20: [place] # (Auto) 0.7 K/mm3 (0.0-0.8) 08/20/20 20: Eos # (Auto) 0.1 K/mm3 (0.0-0.4) 08/20/20 20: Baso # (Auto) 0.0 K/mm3 (0.0-0.1) 08/20/20 20: Seg Neutrophils % 36.1 % (40.0-70.0) L 08/20/20 20: Seg Neutrophils # 1.7 K/mm3 (1.8-7.7) L 08/20/20 20: Sodium 140 mmol/L (137-145) 08/20/20 20: Potassium 4.0 mmol/L (3.6-5.0) 08/20/20 20: Chloride 104.5 mmol/L (98-107) 08/20/20 20: Carbon Dioxide 26 mmol/L (22-30) 08/20/20 20: Anion Gap 14 mmol/L 08/20/20 20: BUN 13 mg/dL (7-17) 08/20/20 20: Creatinine 0.8 mg/dL (0.6-1.2) 08/20/20 20: Estimated GFR > 60 ml/min 08/20/20 20: BUN/Creatinine Ratio 16 % 08/20/20 20: Glucose 101 mg/dL (65-100) H 08/20/20 20:26 Calcium 8.6 mg/dL (8.4-10.2) 08/20/20 20: Total Bilirubin 0.30 mg/dL (0.1-1.2) 08/20/20 20: AST 18 units/L (5-40) 08/20/20 20: ALT 18 units/L (7-56) 08/20/20 20: Alkaline Phosphatase 87 units/L (35-129) 08/20/20 20: Total Protein 7.6 g/dL (6.3-8.2) 08/20/20 20: Albumin 4.0 g/dL (3.9-5) 08/20/20 20: Albumin/Globulin Ratio 1.1 % 08/20/20 20: HCG, Qual Negative (Negative) 08/20/20 20:26 - Medical Decision Making This 30-year-old female presented with migraine headache. Patient got medication in the ED reports feeling slightly better. Patient had no neurological deficit throughout ED stay. Vital signs are normal patient is in no acute distress. Discussed follow-up with primary care physician. Discussed with patient if any new symptoms or worsening symptoms to return to the ED. Critical care attestation.: If time is entered above; I have spent that time in minutes in the direct care of this critically ill patient, excluding procedure time. ED Disposition Clinical Impression: Migraine headache Disposition: TO HOME OR SELFCARE Is pt being admited?: No Does the pt Need Aspirin: No Condition: Stable Instructions: Migraine Headache Additional Instructions: Make sure to follow up with the primary care physician as discussed. Take all your medications as you've been prescribed. If you have any worsening symptoms or develop new symptoms please return to ED immediately. Prescriptions: Butalb/Acetamin/Caff 50-325-40 [Fioricet 50-325-40] 1 tab PO Q8H #30 tablet Ibuprofen [Motrin 800 MG tab] 800 mg PO Q8HR PRN #30 tablet PRN Reason: Pain , Severe (7-10) Referrals: PRIMARY CARE,MD [Primary Care Provider] - 3-5 Days [facility] [Outside] - 3-5 Days [facility] [Outside] - 3-5 Days Forms: Accompanied Note, Work/School Release Form(ED) Time of Disposition: 22:41
== END 2020-08-20 22:50 | disposition home or self-care (01) ==
LOC: ED 20:10
DX: G43.909 Migraine, unspecified, not intractable, without status migrainosus (principal); Z98.890 Other specified postprocedural states; Z90.49 Acquired absence of other specified parts of digestive tract; Z79.1 Long term (current) use of non-steroidal anti-inflammatories (NSAID); Z79.899 Other long term (current) drug therapy
CPT/HCPCS: 36415; 80053; 84703; 85025